=== PATIENT | male | born 2000 | race Hispanic/Latino ===

== ENCOUNTER 2025-03-10 21:48 | Emergency (ER) | payer SELFPAY ==
[~2025-03-10] VITALS: Ht 165.1 cm; Wt 77.1 kg
[2025-03-10 22:03] LABS: IMMATURE GRANULOCYTE ABSOLUTE 0.05 K/uL (0-1); NUCLEATED RED BLOOD CELLS 0.0 % (0.0-0.19); PLATELET COUNT (AUTO) 363 K/uL (130-400); RED BLOOD CELL COUNT(AUTO) 4.77 MIL/uL (4.50-6.20); RED CELL DISTRIBUTION WIDTH 12.1 % (11.0-15.5); WHITE BLOOD COUNT (AUTO) 12.2 K/uL (4.8-10.8)
[2025-03-10 22:10] LABS: CREATININE 0.8 mg/dL (0.5-1.3); GLOMERULAR FILTR. RATE CALC 124.0 mL/min (>90); GLUCOSE,RANDOM 106.0 mg/dL (70-105); SODIUM SERUM 141.0 mmol/L (136-145); UREA NITROGEN, BLOOD 23.0 mg/dL (7-18)
[2025-03-10 22:15] LABS: CREATINE KINASE, TOTAL 76.0 U/L (21-232)
--- NOTE | 2025-03-10 22:37 | ERN ---
ED Note History of Present Illness Stated Complaint: CHEST PAIN, BACK PAIN Chief Complaint: Chest Pain Time Seen by MD: 21:50 Dictation: This is a 25-year-old male who presented to the emergency room with complaints of chest pain and back pain. He describes it as a squeezing sensation and he can not catch his breath. No cough sputum. No wheezing or fever chills. No PND orthopnea or lower extremity edema. Patient's mother gave him 2 Tylenol and the pain had resolved by the time he came to the ER. He normally takes om eprazole in the morning for his reflux symptoms. No diaphoresis palpitations, presyncope or syncope. Pain started in the mid chest with squeezing all the way radiating to the back which lasted for a total of about 20 minutes. He has had similar kind of pains in the past with a bloating, heartburn and indigestion. He tried to reduce hot spicy foods and started taking omeprazole. Temperature 98.2 pulse 96 respirations 16 blood pressure 149/42 with a pulse oximetry of 100% on room air Patient has no history of any other comorbidities. Past Medical History Past Medical History: No Pertinent History Surgical History: None Family History: CAD Social History: Negative RN Note Reviewed/Agreed w/PFSH: Yes Review of System Dictation Constitutional: Negative for fever,chills, and weight loss Eyes: Negative for injury, pain,redness, and discharge ENT: Negative for injury,pain or swelling Cardiovascular: Positive for chest pain, palpitations, and edema Respiratory: Negative for shortness of breath, cough, and wheezing, Abdomen/GI: Negative for abdominal pain, nausea, vomiting, diarrhea, and constipation Back: Negative for injury and pain : Negative for injury, bleeding and discharge MS/Extremity: Negative for injury and deformity Skin: Negative for rash, and discoloration Neuro: Negative for headache, weakness, numbness, tingling, and seizure Psych: Negative for suicide ideation, homicidal ideation, and hallucinations Initial Vital Sign VS Vital Signs Date Time Temp Pulse Resp B/P (MAP) Pulse Ox O2 Delivery O2 Flow Rate FiO2 03/10/25 21:54 98.2 76 16 149/92 100 Room Air* 0 21 Physical Exam Dictation General: awake, alert, NAD Head/Face: Normocephalic, atraumatic Eyes: PERRL, EOMI, vision at baseline ENT: oral cavity clear, TMs clear, no signs of infection Neck: Trachea midline, supple, no nuchal rigidity Cardiovascular: RRR, normal S1/S2, No MRGs, no JVD Respiratory: CTAB, no respiratory distress, No rales or wheezes Abdomen: Soft, non-tender, non-distended, normal bowel sounds, no guarding or rebound. Skin: Warm, dry, normal turgor, no rash MS/Extremity: Pulses equal, no cyanosis, neurovascular intact, FROM Neuro: COAx4, GCS 15, strength 5/5, CN 2-12 intact, normal cerebellar exam, normal gait, Psych: Normal behavior, mood, and affect normal Extremities-trace edema without any palpable cords, Homans sign is negative Results (Laboratory/Radiology) Laboratory/Radiology Laboratory Tests Test 03/10/25 21:53 03/10/25 22:44 03/10/25 23:38 White Blood Count 12.2 K/uL (4.8-10.8) H Red Blood Count 4.77 MIL/uL (4.50-6.20) Hemoglobin 14.2 g/dL (14.0-18.0) Hematocrit 43.1 % (42-54) Mean Corpuscular Volume 90.4 fL (79-99) Mean Corpuscular Hemoglobin 29.8 pg (27.0-33.0) Mean Corpuscular Hemoglobin Concent 32.9 g/dL (32.0-36.0) Red Cell Distribution Width 12.1 % (11.0-15.5) Platelet Count 363 K/uL (130-400) Mean Platelet Volume 9.7 fL (7.5-10.5) Immature Granulocyte % (Auto) 0.4 % (0-1) Neutrophils (%) (Auto) 48.8 % (40.0-77.0) Lymphocytes (%) (Auto) 39.4 % (21.0-51.0) Monocytes (%) (Auto) 8.9 % (3.0-13.0) Eosinophils (%) (Auto) 1.8 % (0.0-8.0) Basophils (%) (Auto) 0.7 % (0.0-5.0) Neutrophils # (Auto) 5.9 K/uL (1.8-7.7) Lymphocytes # (Auto) 4.8 K/uL (1.0-4.8) Monocytes # (Auto) 1.1 K/uL (0.1-1.0) H Eosinophils # (Auto) 0.22 K/uL (0.00-0.70) Basophils # (Auto) 0.09 K/uL (0.00-0.20) Absolute Immature Granulocyte (auto 0.05 K/uL (0-1) Nucleated Red Blood Cells 0.0 % (0.0-0.19) Urine Color LIGHT-YELLOW (YELLOW) Urine Appearance CLEAR (CLEAR) Urine pH 5.5 (5.0-8.0) Urine Specific [place] 1.025 (1.001-1.031) Urine Protein NEGATIVE mg/dL (NEGATIVE) Urine Glucose (UA) NEGATIVE mg/dL (NEGATIVE) Urine Ketones NEGATIVE mg/dL (NEGATIVE) Urine Occult Blood NEGATIVE (NEGATIVE) Urine Nitrate NEGATIVE (NEGATIVE) Urine Bilirubin NEGATIVE mg/dL (NEGATIVE) Urine Urobilinogen 0.2 mg/dL (0.2-1.0) Urine Leukocyte Esterase NEGATIVE Caitlin/uL Sodium Level 141 mmol/L (136-145) Potassium Level 4.0 mmol/L (3.5-5.1) Chloride Level 104 mmol/L (101-111) Carbon Dioxide Level 29 mmol/L (21-32) Blood Urea Nitrogen 23 mg/dL (7-18) H Creatinine 0.8 mg/dL (0.5-1.3) Glomerular Filtration Rate Calc 124 mL/min (>90) Random Glucose 106 mg/dL (70-105) H Total Calcium 8.8 mg/dL (8.5-10.1) Total Creatine Kinase 76 U/L (21-232) Troponin I High Sensitivity < 4 ng/L (4-75) L < 4 ng/L (4-75) L Urine Opiates Screen NEGATIVE (NEGATIVE) Urine Barbiturates Screen NEGATIVE (NEGATIVE) Urine Phencyclidine Screen NEGATIVE (NEGATIVE) Urine Amphetamines Screen NEGATIVE (NEGATIVE) Urine Benzodiazepines Screen NEGATIVE (NEGATIVE) Urine Cocaine Screen NEGATIVE (NEGATIVE) Urine Marijuana (THC) Screen NEGATIVE (NEGATIVE) Labs Reviewed?: Yes EKG Comment: Twelve lead EKG done on 03/10/2025 at 9:48 p.m. showed a heart rate of 73, [place] interval 163, QRS 90, QT/QTC 387/428. Impression normal sinus rhythm with nonspecific STT wave changes. EKG rhythm strip shows a normal sinus rhythm with nonspecific STT wave changes Interpreted by ER MD Dr. Hudson ED Course ED Course Orders Procedure Category Date Status Time Vital Signs Per CPOE 03/10/25 Transmitted Routine 21:51 Chest 1vw RAD 03/10/25 Resulted 21:51 12 Lead Ekg Tracing- EKG 03/10/25 Logged Technical 21:51 Oxygen By Nc/Pulse Ox CPOE 03/10/25 Transmitted 21:51 Maintain Iv CPOE 03/10/25 Transmitted 21:51 Iv Insertion CPOE 03/10/25 Transmitted 21:51 Cardiac Monitoring CPOE 03/10/25 Transmitted 21:51 Pulse Oximetry With CPOE 03/10/25 Transmitted Vs And Prn 21:51 Cbc With Differential LAB 03/10/25 Complete 21:51 Activity: Br W/Brp CPOE 03/10/25 Transmitted With Assist 21:51 Creatine Kinase, Total LAB 03/10/25 Complete 21:51 Troponin I High LAB 03/10/25 Complete Sensitivity 21:51 Urinalysis Profile LAB 03/10/25 Complete 21:51 Basic Metabolic Panel LAB 03/10/25 Complete 21:51 Drug Screen Urine LAB 03/10/25 Complete 22:33 Troponin I High LAB 03/10/25 Complete Sensitivity 23:19 Vital Signs Date Time Temp Pulse Resp B/P (MAP) Pulse Ox O2 Delivery O2 Flow Rate FiO2 03/10/25 23:01 98.2 78 18 152/82 98 Room Air* 0 21 03/10/25 21:54 98.2 76 16 149/92 100 Room Air* 0 21 We will perform diagnostic labs, advanced imaging and administer medications according to the patient's complaint. Once the results are available, will review and personally interpreted the labs to rule out any acute life- threatening emergency the trach require immediate intervention and treatment. I will then re-evaluate the patient after treatment and diagnostic exams have return to determine whether the patient requires any further testing, can safely be discharged home or need further admission to hospital for additional treatment and evaluation. HEART Score Response (Comments) Value History: Low suspicion (0) 0 EKG: Normal 0 Age: < 45yrs (0) 0 Risk Factors: No known risk factors (0) 0 Initial Troponin: Normal limit (0) 0 HEART Score Risk: Low Risk for MACE (1-3) Total 0 Medical Decision Making MDM Differential diagnosis: Esophagitis, gastroesophageal reflux disease, hiatal hernia, gastritis, pericarditis, costochondritis, pleurisy, angina This is a 25-year-old male who presented to the emergency room with complaints of chest pain and back pain. He describes it as a squeezing sensation and he can not catch his breath. No cough sputum. No wheezing or fever chills. No PND orthopnea or lower extremity edema. Patient's mother gave him 2 Tylenol and the pain had resolved by the time he came to the ER. He normally takes omepra zole in the morning for his reflux symptoms. No diaphoresis palpitations, presyncope or syncope. Pain started in the mid chest with squeezing all the way radiating to the back which lasted for a total of about 20 minutes. He has had similar kind of pains in the past with a bloating, heartburn and indigestion. He tried to reduce hot spicy foods and started taking omeprazole. Temperature 98.2 pulse 96 respirations 16 blood pressure 149/42 with a pulse oximetry of 100% on room air Patient has no history of any other comorbidities. 10:45 p.m. labs reviewed CBC showed a white count of 12.2 BNP 7 is with a normal limits glucose is 108. Troponins are less than 4. Chest x-ray is unremarkable for any acute infiltrate cardiomegaly or mediastinal widening. 11:00 p.m. urinalysis is unremarkable. Urine drug screen is negative. I updated the patient and his mother on available test results and my clinical index of suspicion being the pay chest pain being noncardiac most likely esophageal spasm. Patient's mother indicated that many of her family members had cardiac disease. I informed them that we would repeat a 2nd set of cardiac enzymes although my clinical suspicion is low; if negative we will discharge for him to follow up with his primary care physician 12:30 a.m. 2nd set of cardiac enzymes-troponins less than 4. No additional indication for further evaluation as inpatient Rationale: Tests considered and ordered secondary to shared decision making include: Previous outside records reviewed: Old ER visits. Risk of complication and/or morbidity or mortality of patient management: None Medications-Per medication reconciliation Need for hospitalization: Patient does not meet criteria for hospitalization. Need for emergency major/minor surgery: No There are no social concerns with this patient. Prescription drug management Prescriptions will include symptomatic care Patient's prior external medical records from other ER visits were reviewed by me as indicated. Prior testing and results from previous visits were reviewed. Prior tests were taken into account with medical decision making and resource utilization, independent historian/historians were used to obtain complete medical history. I independently interpreted the test that were performed, results were reviewed by me and considered findings on radiology if ordered. Medical management and examination interpretation discussions were had by me with other qualified healthcare professionals as indicated for the patient's care. Problem List Problem List: (1) Atypical chest pain (2) Esophageal spasm (3) Gastroesophageal reflux disease DX & DISP Disposition: Discharge Departure Impression: Primary Impression: Esophageal spasm Additional Impressions: Gastroesophageal reflux disease, Atypical chest pain Condition: Stable Additional Instructions: Patient and the caregiver have been informed of all the diagnostic tests and the imaging conducted during the today's visit to the emergency room and has verbalized understanding of the results I have personally reviewed and interpreted all diagnostic exams performed here in the ER today as well as the vital signs documented by the nursing staff. The patient is now being discharged to home and should follow up with the primary care physician or the specialist as directed by the ER staff. Follow-up with primary care provider in 1 to 2 days. Take medications as directed here in the emergency room. Okay to continue home medications unless otherwise discussed during your visit in the emergency room today. Return to your nearest emergency room if symptoms worsen or if there is no improvement. Call 911 if you need immediate assistance. Take Tylenol or Motrin [id number] as needed and if no contraindications are present. Increase oral hydration. A wound culture or urine culture was ordered here in the emerg ency room department please follow-up with primary care provider and advise them to get repeat ports from our facility. If you had any Jose wrap/splints that were applied here, please do not remove them until you see your primary care or specialty. Referrals: NONE (PCP) ERI HUDSON MD Mar 10, 2025 22:37
[2025-03-10 23:04] LABS: APPEARANCE,URINE CLEAR (CLEAR); GLUCOSE, URINE (UA) NEGATIVE (NEGATIVE); LEUKOCYTE ESTERASE ,URINE NEGATIVE Leu/uL (NEGATIVE); NITRATE,URINE NEGATIVE (NEGATIVE); OCCULT BLOOD,URINE NEGATIVE (NEGATIVE)
[2025-03-10 23:05] LABS: ADD UA MICROSCOPIC NO
[2025-03-10 23:07] LABS: AMPHET/METH SCREEN,URINE NEGATIVE (NEGATIVE); BARBITURATE SCREEN, URINE NEGATIVE (NEGATIVE); CANNABINOID SCREEN,URINE NEGATIVE (NEGATIVE); COCAINE SCREEN,URINE NEGATIVE (NEGATIVE)
--- NOTE | 2025-03-10 23:38 | HMCIMG ---
EXAM: CR Chest, 1 View. CLINICAL HISTORY: CHEST PAIN COMPARISON: None provided. FINDINGS: LUNGS: The lungs show no infiltrate or other acute finding. PLEURAL SPACES: No pleural effusion or pneumothorax. MEDIASTINUM: The cardiomediastinal silhouette is within normal limits. BONES: No acute osseous abnormality. IMPRESSION: No acute cardiopulmonary pathology is evident. /[place]
[2025-03-11 00:35] VITALS: BP 112/62; PULSE 75; RESP 19; TEMP 98.1; O2SAT 99
--- NOTE | 2025-03-11 07:07 | EKG ---
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
== END 2025-03-11 00:43 | disposition home or self-care (01) ==
LOC: EDH 21:48
DX: K22.4 Dyskinesia of esophagus (principal); K21.9 Gastro-esophageal reflux disease without esophagitis; R07.89 Other chest pain
CPT/HCPCS: 36415; 71045; 80048; 80305; 81003; 82550; 84484; 85025; 93005; 99285